=== PATIENT | female | born 1980 | race Caucasian/White ===

== ENCOUNTER 2016-07-17 14:08 | Emergency (ER) | payer OTHER ==
[~2016-07-17] VITALS: Ht 157.5 cm; Wt 73.8 kg
[~2016-07-17 14:08] MED LIST: BENTYL10 MG PO; CHOLESTYRAMINE P4 GM PO; CLINDAMYCIN HC300 MG PO; FLONASE ALLERG9.9 ML BOTH NARES; MONTELUKAST SOD10 MG PO; MUCUS ER600 MG PO; NAPROSYN500 MG PO; NORTRIPTYLINE H10 MG PO; PULMICORT FLE180 MCG IH; PULMICORT FLEX90 MCG IH; RANITIDINE HCL150 MG PO; RELPAX40 MG PO; TRAMADOL HCL50 MG PO; VENTOLIN HFA18 GM IH
[2016-07-17 14:35] LABS: HEMATOCRIT 38.4 % (36.0-46.0); MCH 28.4 PG (29.0-34.0); MCHC 33.6 G/DL (30.0-36.0); MCV 84.6 FL (83-99); MEAN PLAT.VOLUME 9.1 uM^3 (9.5-12.4); PLATELET COUNT 348 K/uL (156-360); RBC DIS.WIDTH-CV 14.5 % (11.8-14.6); RBC DIS.WIDTH-SD 44.4 % (39-53); RED BLOOD COUNT 4.54 M/uL (3.80-5.20); WHITE BLOOD COUNT 11.7 K/uL (4.1-10.2)
[2016-07-17 14:44] LABS: CHLORIDE 99 mEq/L (99-109); POTASSIUM 3.6 mEq/L (3.7-5.4); SODIUM 138 mEq/L (136-147)
[2016-07-17 14:46] LABS: GLUCOSE 102 mg/dL (70-99)
[2016-07-17 14:47] LABS: ANION GAP 10 MEQ/L (2-14)
[2016-07-17 14:48] LABS: TOTAL BILIRUBIN 0.3 mg/dL (0.0-1.0)
[2016-07-17 14:49] LABS: ALKALINE PHOSPHATASE 79 IU/L (3-129)
[2016-07-17 14:50] LABS: GFR ESTIMATE (CALCULATED) > 59 mL/min/
[2016-07-17 14:51] LABS: UREA NITROGEN (BUN) 11 mg/dL (9-23)
[2016-07-17 14:59] LABS: ADD MIUA? NO; BILIRUBIN NEGATIVE; BLOOD NEGATIVE; COLOR YELLOW ((YELLOW)); GLUCOSE (STRIP) NEGATIVE; KETONES NEGATIVE; LEUKOCYTES NEGATIVE; NITRITE NEGATIVE; PROTEIN (STRIP) NEGATIVE; SPECIFIC GRAVITY 1.011 (1.000-1.030); UCUL ADDED? NO; UROBILINOGEN 0.2 MG/DL (0.2-1.0)
[2016-07-17 15:00] LABS: QUANTITATIVE HCG < 4.0 MIU/ML
[2016-07-17] MEDS ORDERED: FLUOXETINE HCL10 MG PO (15:43)
[2016-07-17] MEDS ORDERED: TRIAMTERENE-HC1 EAC1 PO (15:43)
[2016-07-17] MEDS ORDERED: METOPROLOL SUCC50 MG PO (15:44)
[2016-07-17] MEDS ORDERED: RIZATRIPTAN10 MG PO (15:44)
[2016-07-17] MEDS ORDERED: ATORVASTATIN CA40 MG PO (15:44)
[2016-07-17] MEDS ORDERED: NORCO 5/3251 TABLET PO (17:34)
[2016-07-17 17:53] VITALS: BP 105/71
== END 2016-07-17 18:05 | disposition home or self-care (01) ==
LOC: EME 14:08
DX: R10.31 Right lower quadrant pain (principal); R10.33 Periumbilical pain; R19.7 Diarrhea, unspecified; J45.909 Unspecified asthma, uncomplicated; K21.9 Gastro-esophageal reflux disease without esophagitis; Z87.442 Personal history of urinary calculi
CPT/HCPCS: 74177; 80053; 81003; 84702; 85027; 99281; 99284; J2270; J2405; J7040

== ENCOUNTER 2016-07-30 19:00 | Emergency (ER) | payer OTHER ==
[~2016-07-30] VITALS: Ht 157.5 cm; Wt 70.9 kg
[~2016-07-30 19:00] MED LIST changes: +ATORVASTATIN CA40 MG PO; +FLUOXETINE HCL10 MG PO; +METOPROLOL SUCC50 MG PO; +NORCO 5/3251 TABLET PO; +RIZATRIPTAN10 MG PO; +TRIAMTERENE-HC1 EAC1 PO
[2016-07-30 19:31] LABS: HEMATOCRIT 39.8 % (36.0-46.0); MCH 27.7 PG (29.0-34.0); MCHC 32.7 G/DL (30.0-36.0); MCV 84.7 FL (83-99); MEAN PLAT.VOLUME 8.7 uM^3 (9.5-12.4); PLATELET COUNT 368 K/uL (156-360); RBC DIS.WIDTH-CV 14.3 % (11.8-14.6); RBC DIS.WIDTH-SD 44.5 % (39-53); WHITE BLOOD COUNT 12.3 K/uL (4.1-10.2)
[2016-07-30 19:39] LABS: CHLORIDE 99 mEq/L (99-109); POTASSIUM 3.1 mEq/L (3.7-5.4); SODIUM 139 mEq/L (136-147)
[2016-07-30 19:42] LABS: GLUCOSE 107 mg/dL (70-99)
[2016-07-30 19:43] LABS: ANION GAP 12 MEQ/L (2-14)
[2016-07-30 19:44] LABS: TOTAL BILIRUBIN 0.4 mg/dL (0.0-1.0)
[2016-07-30 19:45] LABS: ALKALINE PHOSPHATASE 75 IU/L (3-129); GFR ESTIMATE (CALCULATED) > 59 mL/min/
[2016-07-30 19:46] LABS: UREA NITROGEN (BUN) 11 mg/dL (9-23)
[2016-07-30 19:55] LABS: ADD MIUA? YES; BILIRUBIN NEGATIVE; BLOOD SMALL; COLOR YELLOW ((YELLOW)); GLUCOSE (STRIP) NEGATIVE; KETONES NEGATIVE; LEUKOCYTES NEGATIVE; NITRITE NEGATIVE; PROTEIN (STRIP) NEGATIVE; SPECIFIC GRAVITY 1.009 (1.000-1.030); UROBILINOGEN 0.2 MG/DL (0.2-1.0)
[2016-07-30 20:03] LABS: BACTERIA RARE /HPF; EPITHELIAL CELLS RARE /HPF; MUCUS NONE SEEN /LPF; RED BLOOD CELLS 0-5 /HPF (0-5); UCUL ADDED? NO; WHITE BLOOD CELLS 0-5 /HPF (0-5)
[2016-07-30 20:17] LABS: LIPASE 21 U/L (1.0-51.0)
[2016-07-30] MEDS ORDERED: OMEPRAZOLE40 M1 PO (21:53)
[2016-07-30 22:07] VITALS: BP 138/95
== END 2016-07-30 22:08 | disposition home or self-care (01) ==
LOC: EME 19:00
DX: R10.31 Right lower quadrant pain (principal); K21.9 Gastro-esophageal reflux disease without esophagitis; J45.909 Unspecified asthma, uncomplicated; Z87.442 Personal history of urinary calculi
CPT/HCPCS: 74176; 80053; 81003; 83690; 85027; 99281; 99284